=== PATIENT | male | born 1980 | race African-American/Black ===

== ENCOUNTER 2022-09-26 23:25 | Emergency (ER) | payer SELFPAY ==
[2022-09-27 01:26] LABS: SARS-COV-2 RT PCR NEGATIVE (NEGATIVE)
[2022-09-27] MEDS ORDERED: IBUPROFEN 400 MG TAB ONE (02:01)
--- NOTE | 2022-09-27 04:28 | ER ---
Nurse's Notes [facility] Name: Jaden Marquez Age: 42 yrs Sex: Male : 1980 Arrival Date: 09/26/2022 Time: 23:27 Bed 7 Private MD: Diagnosis: Acute upper respiratory infection, unspecified;Cough;UTI/ Urinary tract infection, site not specified Presentation: 09/27 00:17 Chief complaint: Patient states: he has had a cough and runny nose for several days bb with pain in his back. Coronavirus screen: Client presents with at least one sign or symptom that may indicate coronavirus-19. Ebola Screen: No symptoms or risks identified at this time. Initial Sepsis Screen: Does the patient meet any 2 criteria? No. Patient's initial sepsis screen is negative. Does the patient have a suspected source of infection? No. Patient's initial sepsis screen is negative. Risk Assessment: Do you want to hurt yourself or someone else? Patient reports no desire to harm self or others. Onset of symptoms was September 24, 2022. 00:17 Method Of Arrival: Ambulatory bb 00:17 Acuity: JAN 3 bb Triage Assessment: 00:20 General: Appears in no apparent distress. Behavior is calm, cooperative. Pain: bb Complains of pain in back. Neuro: Level of Consciousness is awake, alert, obeys commands, Oriented to person, place, time, situation. Cardiovascular: Capillary refill < 3 seconds Patient's skin is warm and dry. Respiratory: Respiratory effort is unlabored. GI: No signs and/or symptoms were reported involving the gastrointestinal system. Derm: Skin is dry, Skin is normal, Skin temperature is warm. Musculoskeletal: Circulation, motion, and sensation intact. Historical: - Allergies: 00:20 No Known Allergies; bb - Home Meds: 00:20 Flonase Nasal [Active]; O2 PRN [Active]; Allopurinol Oral [Active]; Omeprazole Oral bb [Active]; inhaler [Active]; - PMHx: 00:20 Covid; Gout; GERD; bb - PSHx: 00:20 Tonsillectomy; bb - Immunization history:: Client reports receiving the 2nd dose of the Covid vaccine, Pfizer. - Social history:: Smoking status: Patient denies any tobacco usage or history of. Screenin: Abuse screen: Denies threats or abuse. Denies injuries from another. Nutritional ha1 screening: No deficits noted. Tuberculosis screening: No symptoms or risk factors identified. 04:40 [facility] ED Fall Risk Assessment (Adult) Score/Fall Risk Level 0 - 2 = Low Risk. as6 Assessment: 02:01 General: Appears comfortable, Behavior is calm, cooperative. Pain: Complains of pain in ha1 back Pain does not radiate. Pain currently is 7 out of 10 on a pain scale. Quality of pain is described as throbbing. Neuro: Level of Consciousness is awake, alert, obeys commands, Oriented to person, place, time, situation. Cardiovascular: Capillary refill < 3 seconds Patient's skin is warm and dry. Respiratory: Reports cough that is non-productive, Airway is patent Respiratory effort is even, unlabored, Respiratory pattern is regular, symmetrical. GI: No signs and/or symptoms were reported involving the gastrointestinal system. Abdomen is flat, non-distended. : No signs and/or symptoms were reported regarding the genitourinary system. EENT: No deficits noted. No signs and/or symptoms were reported regarding the EENT system. Derm: Skin is normal. 03:00 Reassessment: Patient and/or family updated on plan of care and expected duration. Pain ha1 level reassessed. Patient is alert, oriented x 3, equal unlabored respirations, skin warm/dry/pink. 04:00 Reassessment: Patient and/or family updated on plan of care and expected duration. Pain ha1 level reassessed. Patient is alert, oriented x 3, equal unlabored respirations, skin warm/dry/pink. Vital Signs: 00:17 BP 121 / 77; Pulse 78; Resp 18 S; Temp 98.8(O); Pulse Ox 99% on R/A; Weight 109.32 kg bb (R); Height 5 ft. 5 in. (165.10 cm) (R); Pain 6/10; 02:03 BP 108 / 66; Pulse 62; Resp 18 S; Pulse Ox 96% on R/A; as6 03:00 BP 114 / 83; Pulse 64; Resp 16 S; Pulse Ox 98% on R/A; ha1 04:00 BP 106 / 75; Pulse 65; Resp 17 S; Pulse Ox 96% on R/A; ha1 00:17 Body Mass Index 40.10 (109.32 kg, 165.10 cm) bb ED Course: 09/26 23:27 Patient arrived in ED. slava 09/27 00:20 Triage completed. bb 00:20 Arm band placed on Patient placed in waiting room, Patient notified of wait time. Labs bb ordered per protocol. X-ray ordered. 00:29 Chest Pa And Lat (2 Views) XRAY In Process Unspecified. EDMS 00:35 Efrain Larsen MD is Attending Physician. des 01:55 Zhang Thompson, RN is Primary Nurse. as6 02:03 Patient has correct armband on for positive identification. Placed in gown. Bed in low ha1 position. Call light in reach. Side rails up X 1. 04:33 Nagi Whipple DO is Referral Physician. des 04:33 Reza Yeager MD is Referral Physician. des 04:36 No provider procedures requiring assistance completed. Patient did not have IV access ha1 during this emergency room visit. Administered Medications: 02:02 Drug: Motrin (ibuprofen) 800 mg Route: PO; as6 03:07 Follow up: Response: No adverse reaction ha1 04:34 Drug: Tussionex Pennkinetic ER (chlorpheniramine-hydrocodone) Suspension 5 ml Route: PO;ha1 04:38 Follow up: Response: No adverse reaction as6 04:35 Drug: Zithromax (azithromycin) 500 mg Route: PO; ha1 04:38 Follow up: Response: No adverse reaction as6 04:35 Drug: predniSONE 60 mg Route: PO; ha1 04:38 Follow up: Response: No adverse reaction as6 Medication: 04:37 VIS not applicable for this client. ha1 Outcome: 04:28 Discharge ordered by . des 04:40 Discharged to home ambulatory. as6 04:40 Condition: stable 04:40 Discharge instructions given to patient, Instructed on discharge instructions, follow up and referral plans. medication usage, Demonstrated understanding of instructions, follow-up care, medications, Prescriptions given X 4. 04:42 Patient left the ED. as6 Signatures: Dispatcher [employer] EDNV Efrain Larsen MD MD cha Ballard, Brenda, RN RN Trinh Toney [facility] Zhang Thompson, CHAUNCEY GROSSMAN as6 Morse, Denisha, RN RN ha1 Corrections: (The following items were deleted from the chart) 02:04 02:01 Respiratory: Airway is patent Respiratory effort is even, unlabored, Respiratory ha1 pattern is regular, symmetrical, ha1 03:07 03:06 Reassessment: Patient and/or family updated on plan of care and expected ha1 duration. Pain level reassessed. Patient is alert, oriented x 3, equal unlabored respirations, skin warm/dry/pink. ha1
--- NOTE | 2022-09-27 04:29 | EDPHYS ---
Physician Documentation [facility] Name: Jaden Marquez Age: 42 yrs Sex: Male : 1980 Arrival Date: 09/26/2022 Time: 23:27 Bed 7 Private MD: MARÍA Physician Efrain Larsen HPI: 09/27 04:22 This 42 yrs old Black Male presents to ER via Ambulatory with complaints of Back Pain, des Cough. 04:22 The patient presents with pain that is acute, with no known mechanism of injury. des Historical: - Allergies: 00:20 No Known Allergies; bb - Home Meds: 00:20 Flonase Nasal [Active]; O2 PRN [Active]; Allopurinol Oral [Active]; Omeprazole Oral bb [Active]; inhaler [Active]; - PMHx: 00:20 Covid; Gout; GERD; bb - PSHx: 00:20 Tonsillectomy; bb - Immunization history:: Client reports receiving the 2nd dose of the Covid vaccine, Pfizer. - Social history:: Smoking status: Patient denies any tobacco usage or history of. ROS: 04:23 Constitutional: Negative for fever, chills, and weight loss, Eyes: Negative for injury, des pain, redness, and discharge, ENT: Negative for injury, pain, and discharge, Neck: Negative for injury, pain, and swelling, Cardiovascular: Negative for chest pain, palpitations, and edema, Abdomen/GI: Negative for abdominal pain, nausea, vomiting, diarrhea, and constipation, : Negative for injury, bleeding, discharge, and swelling, MS/Extremity: Negative for injury and deformity, Skin: Negative for injury, rash, and discoloration, Neuro: Negative for headache, weakness, numbness, tingling, and seizure, Psych: Negative for depression, anxiety, suicide ideation, homicidal ideation, and hallucinations, Allergy/Immunology: Negative for hives, rash, and allergies, Endocrine: Negative for neck swelling, polydipsia, polyuria, polyphagia, and marked weight changes, Hematologic/Lymphatic: Negative for swollen nodes, abnormal bleeding, and unusual bruising. 04:23 Respiratory: Positive for cough, "sounds productive". Exam: 04:23 Constitutional: This is a well developed, well nourished patient who is awake, alert, des and in no acute distress. Head/Face: Normocephalic, atraumatic. Eyes: Pupils equal round and reactive to light, extra-ocular motions intact. Lids and lashes normal. Conjunctiva and sclera are non-icteric and not injected. Cornea within normal limits. Periorbital areas with no swelling, redness, or edema. ENT: Nares patent. No nasal discharge, no septal abnormalities noted. Tympanic membranes are normal and external auditory canals are clear. Oropharynx with no redness, swelling, or masses, exudates, or evidence of obstruction, uvula midline. Mucous membranes moist. Neck: Trachea midline, no thyromegaly or masses palpated, and no cervical lymphadenopathy. Supple, full range of motion without nuchal rigidity, or vertebral point tenderness. No Meningismus. Chest/axilla: Normal chest wall appearance and motion. Nontender with no deformity. No lesions are appreciated. Cardiovascular: Regular rate and rhythm with a normal S1 and S2. No gallops, murmurs, or rubs. Normal PMI, no JVD. No pulse deficits. Respiratory: Lungs have equal breath sounds bilaterally, clear to auscultation and percussion. No rales, rhonchi or wheezes noted. No increased work of breathing, no retractions or nasal flaring. Abdomen/GI: Soft, non-tender, with normal bowel sounds. No distension or tympany. No guarding or rebound. No evidence of tenderness throughout. Back: No spinal tenderness. No costovertebral tenderness. Full range of motion. Male : Normal genitalia with no discharge or lesions. Skin: Warm, dry with normal turgor. Normal color with no rashes, no lesions, and no evidence of cellulitis. MS/ Extremity: Pulses equal, no cyanosis. Neurovascular intact. Full, normal range of motion. Neuro: Awake and alert, GCS 15, oriented to person, place, time, and situation. Cranial nerves II-XII grossly intact. Motor strength 5/5 in all extremities. Sensory grossly intact. Cerebellar exam normal. Normal gait. Psych: Awake, alert, with orientation to person, place and time. Behavior, mood, and affect are within normal limits. 04:23 Musculoskeletal/extremity: ROM: intact in all extremities, full active range of motion, in all extremities, Circulation is intact in all extremities. Sensation intact. Compartment Syndrome exam of affected extremity: is normal. Joints: All joints appear normal with full range of motion. Weight bearing: able to fully bear weight, without difficulty, DVT Exam: No signs of deep vein thrombosis. no pain, no swelling, no tenderness, negative Homans' sign noted on exam, no appreciated bluish discoloration, no erythema, no increased warmth. Vital Signs: 00:17 BP 121 / 77; Pulse 78; Resp 18 S; Temp 98.8(O); Pulse Ox 99% on R/A; Weight 109.32 kg bb (R); Height 5 ft. 5 in. (165.10 cm) (R); Pain 6/10; 02:03 BP 108 / 66; Pulse 62; Resp 18 S; Pulse Ox 96% on R/A; as6 03:00 BP 114 / 83; Pulse 64; Resp 16 S; Pulse Ox 98% on R/A; ha1 04:00 BP 106 / 75; Pulse 65; Resp 17 S; Pulse Ox 96% on R/A; ha1 00:17 Body Mass Index 40.10 (109.32 kg, 165.10 cm) bb MDM: 00:35 Patient medically screened. des 04:31 Antibiotic administration: The patient is discharged and will get outpatient [facility] antibiotics, Zithromax. Differential diagnosis: obstructed airway, bronchitis, flu, Obesity. Differential Diagnosis: Obstructed Airway Bronchitis Influenza Upper Respiratory Infection Sinusitis Pharyngitis Asthma Exacerbation Viral Syndrome Pneumonia. Data reviewed: vital signs, nurses notes, radiologic studies, plain films. Data interpreted: ekg monitor: rate is 64 beats/min, rhythm is atrial fibrillation, Pulse oximetry: on room air. Test interpretation: by ED physician or midlevel provider: plain radiologic studies. Counseling: I had a detailed discussion with the patient and/or guardian regarding: the historical points, exam findings, and any diagnostic results supporting the discharge/admit diagnosis, lab results, radiology results, the need for outpatient follow up, for definitive care, a technician plant and maintenance. 09/27 00:15 Order name: COVID-19/FLU A+B; Complete Time: 04:19 bb 09/27 00:05 Order name: Chest Pa And Lat (2 Views) XRAY snw Administered Medications: 02:02 Drug: Motrin (ibuprofen) 800 mg Route: PO; as6 03:07 Follow up: Response: No adverse reaction ha1 04:34 Drug: Tussionex Pennkinetic ER (chlorpheniramine-hydrocodone) Suspension 5 ml Route: PO;ha1 04:38 Follow up: Response: No adverse reaction as6 04:35 Drug: Zithromax (azithromycin) 500 mg Route: PO; ha1 04:38 Follow up: Response: No adverse reaction as6 04:35 Drug: predniSONE 60 mg Route: PO; ha1 04:38 Follow up: Response: No adverse reaction as6 Disposition Summary: 09/27/22 04:28 Discharge Ordered Location: Home des Problem: new des Symptoms: have improved des Condition: Stable des Diagnosis - Acute upper respiratory infection, unspecified des - Cough des - UTI/ Urinary tract infection, site not specified des Followup: des - With: Private Physician - When: 2 - 3 days - Reason: Recheck today's complaints, Continuance of care, Re-evaluation by your physician Followup: des - With: Nagi Whipple DO - When: 2 - 3 days - Reason: Recheck today's complaints, Continuance of care, Re-evaluation by your physician Followup: des - With: Reza Yeager MD - When: 2 - 3 days - Reason: Recheck today's complaints, Re-evaluation by your physician Discharge Instructions: - Discharge Summary Sheet des - Cool Mist Vaporizer des - Upper Respiratory Infection, Adult, [id number] des - Cough, Adult, [id number] des - Cough, Adult des Forms: - Medication Reconciliation Form des - Thank You Letter des - Antibiotic Education des - Prescription Opioid Use [facility] Prescriptions: - albuterol sulfate 90 mcg/actuation Inhalation HFA aerosol inhaler - inhale 2 puff by INHALATION route every 6 hours; 1 Pump; Refills: 0, Product des Selection Permitted - Tessalon Perles 100 mg Oral Capsule - take 2 capsule by ORAL route every 8 hours As needed; 40 capsule; Refills: 0, [facility] Product Selection Permitted - Medrol (Nic) 4 mg Oral Tablets, Dose Pack - take 1 tablet by ORAL route as directed - follow package instructions; 1 des packet; Refills: 0, Product Selection Permitted - Zithromax 500 mg Oral Tablet - take 1 tablet by ORAL route once daily for 5 days; 5 tablet; Refills: 0, [facility] Product Selection Permitted Signatures: Dispatcher [employer] EDMS Chava, Efrain, MD MD des Nagel, Yumi, RN RN bb Zhang Thompson, CHAUNCEY RN as6 Denisha Morse RN RN ha1
[2022-09-27] MEDS ORDERED: AZITHROMYCIN 250 MG TAB ONE (04:31)
[2022-09-27] MEDS ORDERED: HYDROCODONE/CHLORPHEN 5 ML/OSYR ONE (04:33)
[2022-09-27] MEDS ORDERED: predniSONE 20 MG TAB ONE (04:34)
[2022-09-27 04:46] VITALS: TEMP 98.8
[2022-09-27 04:50] VITALS: BP 106/75; O2SAT 96
--- NOTE | 2022-09-27 11:37 | RAD REPORT ---
EXAM DESCRIPTION: RAD - Chest Pa And Lat (2 Views) - 09/27/2022 12:27 am CLINICAL HISTORY: The patient is 42 years old and is Male; COUGH TECHNIQUE: Frontal and lateral views of the chest. COMPARISON: No relevant prior studies available. FINDINGS: Lungs: Unremarkable. No consolidation. Pleural space: Unremarkable. No pneumothorax. Heart: Unremarkable. Mediastinum: Unremarkable. Bones/joints: Unremarkable. IMPRESSION: No acute findings in the chest. Electronically signed by: Mohit Silva MD 09/27/2022 1:00 AM [employer] HOST/HOSTESS Due to temporary technical issues with the PACS/Fluency reporting system, reports are being signed by the in house radiologists without review as a courtesy to insure prompt reporting. The interpreting radiologist is fully responsible for the content of the report.
== END 2022-09-27 04:42 | disposition home or self-care (01) ==
LOC: ER 23:25
DX: J06.9 Acute upper respiratory infection, unspecified (principal); N39.0 Urinary tract infection, site not specified; Z20.822 Contact with and (suspected) exposure to COVID-19
CPT/HCPCS: 0240U; 71046; 99284; J7512; Q0144